=== PATIENT | male | born 1930 | race African-American/Black ===

== ENCOUNTER 2021-05-28 05:39 | Inpatient (IN) ==
[2021-05-28 06:17] LABS: Basophils % 0.3 % (0.0-0.8); Eosinophils % 0.3 % (0.00-10.9); Hematocrit 35.6 VOL% (42.0-52.0); Hemoglobin 11.2 GM/DL (14.0-18.0); Immature Granulocytes Absolute 0.07 #; Lymphocytes # 0.3 10*3/uL (1.4-4.0); Lymphocytes % 4.9 % (21.2-54.2); Mean Corpuscular HGB Conc 31.5 GM/DL (32-36); Mean Corpuscular Volume 88.3 FL (87-102); Mean Platelet Volume 10.1 FL (9.6-12.0); Monocytes % 2.4 % (1.7-12.7); Neutrophils % 91.1 % (38.7-73.9); Platelet Count 156 T/CUMM (130-400); Red Blood Count 4.03 MC/CUMM (3.8-5.5); Red Cell Distribution Width 14.4 % (9.3-17.3); White Blood Count 6.8 T/CUMM (4-12)
[2021-05-28 06:49] LABS: Alanine Aminotransferase 20 U/L (16-61); Albumin 2.9 G/DL (3.4-5.0); Alkaline Phosphatase 72 U/L (45-117); Aspartate Amino Transferase 26 U/L (0-37); Blood Urea Nitrogen 19 MG/DL (7-18); Calcium 8.5 MG/DL (8.5-10.1); Carbon Dioxide 26 MMOL/L (21-32); Estimated Glom Filtration Rate 77 ML/MIN; Glucose 126 MG/DL (74-106); Osmolality,Calculated 282.4 MOS/KG (273-304); Potassium 3.8 MMOL/L (3.5-5.1); Sodium 140 MMOL/L (136-145); Total Protein 6.6 G/DL (6.4-8.2)
[2021-05-28 07:01] LABS: Barbiturates Screen,Urine Negative (Negative); Benzodiazepines Screen,Urine Negative (Negative); Cannabinoid Screen,Urine Negative (Negative); Opiate Screen,Urine Negative (Negative); Phencyclidine Screen,Urine Negative (Negative)
[2021-05-28] MEDS ORDERED: LEVOFLOXACIN INJ 500 MG/100 ML PREMIX IV STA (07:10)
[2021-05-28] MEDS ORDERED: VANCOMYCIN INJ 1,000 MG in SODIUM CHLORIDE 0.9% 250 ML IV STA (07:10)
[2021-05-28 07:17] LABS: Anisocytosis 1+; Band Neutrophils 27 % (0-10); Eosinophils 2 % (0-10); Lymphocytes 7 % (20-55); Macrocytosis Slight; Platelet Estimate Normal; Segmented Neutrophils 57 % (50-85); Total Cells Counted 100
[2021-05-28] MEDS ORDERED: SODIUM CHLORIDE 0.9% 1,000 ML IV STA (07:43)
[2021-05-28 08:14] LABS: Amorphous Crystals,Urine Moderate /HPF (Few); Bacteria,Urine Many /HPF (Few); Bilirubin,Urine Negative (Negative); Blood, Urine Moderate mg/dL (Negative); Glucose,Urine (UA) Negative (Negative); Ketones,Urine Negative (Negative); Mucus,Urine Occasional /LPF (Occasional); Nitrite,Urine Negative (Negative); Protein,Urine 30 MG/DL; RBC,Urine 27 /HPF (0-4); Urine Appearance Slightly Hazy (Clear); Urine Color Yellow (Yellow); Urine Specific Gravity 1.013 (1.001-1.035); Urine Urobilinogen < 2.0 EU/DL (0.2-1.0)
[2021-05-28] MEDS ORDERED: ACETAMINOPHEN 325 MG TABLET PO PRN (08:51)
[2021-05-28] MEDS ORDERED: DEXTROSE 50% 25 GM/50 ML VIAL IV PRN (08:51)
[2021-05-28] MEDS ORDERED: GLUCAGON 1 MG VIAL IM PRN (08:51)
[2021-05-28] MEDS ORDERED: ONDANSETRON 4 MG/2 ML VIAL IV PRN (08:51)
[2021-05-28] MEDS ORDERED: DOCUSATE SODIUM 100 MG CAPSULE PO PRN (08:51)
[2021-05-28] MEDS: ENOXAPARIN 40 MG/0.4 ML SYRINGE SUBCUT SCH (11:17)
[2021-05-28] MEDS: carvediloL 12.5 MG TABLET PO SCH ×2 (11:17→20:39)
[2021-05-28] MEDS: SODIUM CHLORIDE 0.45% 1,000 ML IV SCH (12:00)
[2021-05-28] MEDS: MEROPENEM 500 MG in SODIUM CHLORIDE 0.9% 100 ML IV SCH ×3 (12:00→20:44)
[2021-05-28] MEDS: POLYETHYLENE GLYCOL POWDER 17 GM PACK PO SCH (16:50)
[2021-05-28] MEDS: DOCUSATE SODIUM 100 MG CAPSULE PO SCH (20:39)
[2021-05-29] MEDS: MEROPENEM 500 MG in SODIUM CHLORIDE 0.9% 100 ML IV SCH ×4 (03:54→22:30)
[2021-05-29 05:02] LABS: Basophils % 0.3 % (0.0-0.8); Eosinophils % 0.1 % (0.00-10.9); Hematocrit 30.7 VOL% (42.0-52.0); Hemoglobin 9.6 GM/DL (14.0-18.0); Immature Granulocytes % 1.5 %; Immature Granulocytes Absolute 0.11 #; Lymphocytes # 0.4 10*3/uL (1.4-4.0); Lymphocytes % 5.4 % (21.2-54.2); Mean Corpuscular HGB Conc 31.3 GM/DL (32-36); Mean Corpuscular Volume 86.7 FL (87-102); Mean Platelet Volume 10.4 FL (9.6-12.0); Monocytes % 5.9 % (1.7-12.7); Neutrophils % 86.8 % (38.7-73.9); Platelet Count 148 T/CUMM (130-400); Red Blood Count 3.54 MC/CUMM (3.8-5.5); Red Cell Distribution Width 14.4 % (9.3-17.3); White Blood Count 7.2 T/CUMM (4-12)
[2021-05-29 05:46] LABS: Calcium 7.8 MG/DL (8.5-10.1); Osmolality,Calculated 279.4 MOS/KG (273-304); Potassium 3.5 MMOL/L (3.5-5.1)
[2021-05-29] MEDS: DOCUSATE SODIUM 100 MG CAPSULE PO SCH ×2 (11:53→22:30)
[2021-05-29] MEDS: carvediloL 6.25 MG TABLET PO SCH ×2 (11:54→17:03)
[2021-05-29] MEDS: PANTOPRAZOLE 40 MG TABLET PO SCH (11:54)
[2021-05-29] MEDS: ENOXAPARIN 40 MG/0.4 ML SYRINGE SUBCUT SCH (11:54)
[2021-05-29] MEDS: POLYETHYLENE GLYCOL POWDER 17 GM PACK PO SCH (11:55)
[2021-05-29] MEDS: SODIUM CHLORIDE 0.45% 1,000 ML IV SCH (16:53)
[2021-05-30] MEDS: SODIUM CHLORIDE 0.45% 1,000 ML IV SCH ×2 (03:49→13:12)
[2021-05-30] MEDS: MEROPENEM 500 MG in SODIUM CHLORIDE 0.9% 100 ML IV SCH ×4 (04:41→21:44)
[2021-05-30 05:29] LABS: Basophils % 0.3 % (0.0-0.8); Eosinophils # 0.1 10*3/uL (0.0-0.87); Eosinophils % 1.4 % (0.00-10.9); Hematocrit 31.5 VOL% (42.0-52.0); Hemoglobin 9.9 GM/DL (14.0-18.0); Immature Granulocytes % 1.4 %; Lymphocytes # 0.9 10*3/uL (1.4-4.0); Lymphocytes % 12.1 % (21.2-54.2); Mean Corpuscular HGB Conc 31.4 GM/DL (32-36); Mean Corpuscular Volume 85.6 FL (87-102); Mean Platelet Volume 10.9 FL (9.6-12.0); Monocytes % 11.2 % (1.7-12.7); Neutrophils % 73.6 % (38.7-73.9); Platelet Count 152 T/CUMM (130-400); Red Blood Count 3.68 MC/CUMM (3.8-5.5); Red Cell Distribution Width 14.3 % (9.3-17.3)
[2021-05-30 05:57] LABS: Calcium 7.9 MG/DL (8.5-10.1); Osmolality,Calculated 275.7 MOS/KG (273-304); Potassium 3.5 MMOL/L (3.5-5.1)
[2021-05-30] MEDS: DOCUSATE SODIUM 100 MG CAPSULE PO SCH ×2 (08:41→21:46)
[2021-05-30] MEDS: POLYETHYLENE GLYCOL POWDER 17 GM PACK PO SCH (08:41)
[2021-05-30] MEDS: carvediloL 6.25 MG TABLET PO SCH ×2 (08:41→17:16)
[2021-05-30] MEDS: PANTOPRAZOLE 40 MG TABLET PO SCH (08:41)
[2021-05-30] MEDS ORDERED: MAGNESIUM SULF RIDER 2 GM/50 ML PREMIX IV PRN (13:53)
[2021-05-30] MEDS ORDERED: MAGNESIUM SULF RIDER 4 GM/100 ML PREMIX IV PRN (13:53)
[2021-05-30] MEDS ORDERED: DONEPEZIL 5 MG TABLET PO SCH (21:00)
[2021-05-31] MEDS: SODIUM CHLORIDE 0.45% 1,000 ML IV SCH ×2 (00:22→10:06)
[2021-05-31] MEDS: MEROPENEM 500 MG in SODIUM CHLORIDE 0.9% 100 ML IV SCH ×2 (04:58→09:54)
[2021-05-31 05:00] LABS: Basophils % 0.5 % (0.0-0.8); Eosinophils # 0.2 10*3/uL (0.0-0.87); Eosinophils % 2.8 % (0.00-10.9); Hematocrit 30.7 VOL% (42.0-52.0); Hemoglobin 9.7 GM/DL (14.0-18.0); Immature Granulocytes % 2.5 %; Immature Granulocytes Absolute 0.16 #; Lymphocytes # 1.7 10*3/uL (1.4-4.0); Lymphocytes % 26.2 % (21.2-54.2); Mean Corpuscular HGB Conc 31.6 GM/DL (32-36); Mean Corpuscular Volume 85.3 FL (87-102); Mean Platelet Volume 10.8 FL (9.6-12.0); Monocytes % 10.6 % (1.7-12.7); Neutrophils % 57.4 % (38.7-73.9); Platelet Count 162 T/CUMM (130-400); Red Cell Distribution Width 14.4 % (9.3-17.3); White Blood Count 6.5 T/CUMM (4-12)
[2021-05-31 05:20] LABS: Calcium 7.6 MG/DL (8.5-10.1); Osmolality,Calculated 279.4 MOS/KG (273-304); Potassium 3.7 MMOL/L (3.5-5.1)
[2021-05-31 05:26] LABS: Eosinophils 1 % (0-10); Lymphocytes 22 % (20-55); Platelet Estimate Adequate; Segmented Neutrophils 70 % (50-85); Total Cells Counted 100
[2021-05-31] MEDS: PANTOPRAZOLE 40 MG TABLET PO SCH (09:54)
[2021-05-31] MEDS: DOCUSATE SODIUM 100 MG CAPSULE PO SCH (09:54)
[2021-05-31] MEDS: carvediloL 6.25 MG TABLET PO SCH (09:54)
[2021-05-31] MEDS: POLYETHYLENE GLYCOL POWDER 17 GM PACK PO SCH (10:07)
[2021-05-31 12:19] VITALS: BP 113/71
== END 2021-05-31 12:25 | disposition home health service (06) | DRG 871 ==
LOC: EDBD → EDUNIT# → N.ED 05:39 → N.EDINP 05:39 → SUATTDRO 08:49 → N.TELES 10:15
PROVIDERS: ADMIT Hospitalist; ATTEND Internal Medicine